=== PATIENT | female | born 1960 | race Caucasian/White ===

== ENCOUNTER 2017-06-07 11:37 | Emergency (ER) | payer BC ==
[~2017-06-07] VITALS: Ht 162.6 cm; Wt 47.6 kg
--- NOTE | ~2017-06-07 | EKG ---
[address] [address] ELECTROCARDIOGRAM REPORT Name: ZABRINA HITCHCOCK Room #: DEP [facility]#: [id number] Admission: 06/07/17 Attend Phys: Discharge: 06/07/17 Date of : 56 Report #: [id number] THIS REPORT FOR: //name// [facility] ED Test Date: 2017-06-07 Test Time: 12:03:39 Pat Name: ZABRINA HITCHCOCK Department: Room: Gender: F Hospital Admissions Officer: Sandra MORENO : 1960 Requested By: Darcy Harris Order Number: [id number] MD: Jan Nguyen Measurements Intervals [place] Rate: 90 P: 69 [place]: 130 QRS: 55 QRSD: 92 T: 51 QT: 306 QTc: 375 Interpretive Statements Sinus rhythm Compared to ECG 08/29/2010 15:15:10 Atrial abnormality no longer present Right-axis deviation no longer present Electronically Signed On 06-07-2017 17:29:33 [employer] PROSE WRITER by Jan Nguyen [email or web address] <ELECTRONICALLY SIGNED> By: Jan Nguyen MD 06/07/17 1729 1203 02 Jan Nguyen MD /ZION
[~2017-06-07 11:37] MED LIST: DESYREL100 MG PO; DIAZEPAM 2MG TAB2 MG PO; IBUPROFEN 200200 M1 PO; PRISTIQ50 MG PO
[2017-06-07] MEDS ORDERED: XANAX 0.5 MG0.5 MG PO (12:09)
[2017-06-07] MEDS ORDERED: CELEXA40 MG PO (12:09)
[2017-06-07] MEDS ORDERED: NORVASC5 MG PO (12:10)
[2017-06-07] MEDS ORDERED: PRINIVIL20 MG PO (12:10)
[2017-06-07 12:16] LABS: ABSOLUTE NEUTROPHILS 16.9 thou/uL (1.4-8.2); BASOPHILS 0.2 % (0.0-2.0); HEMATOCRIT 46.6 % (37.0-47.0); HEMOGLOBIN 15.8 gm/dL (12.0-15.0); MCH 30.8 pg (26.0-34.0); MCV 90.7 fL (80.0-100.0); MONOCYTES 1.9 % (1.0-8.0); PLATELET COUNT 234 thou/uL (150-400); POLYS 92.9 % (36.0-66.0); RBC 5.14 mil/uL (4.20-5.00); RDW 13.1 % (10.5-14.5); WBC 18.2 thou/uL (4.0-11.0)
[2017-06-07 12:31] LABS: CALCIUM 10.1 mg/dL (8.5-10.1); CREATININE 1.1 mg/dL (0.6-1.0); POTASSIUM 3.6 mmol/L (3.5-5.1)
== END 2017-06-07 15:13 | disposition home or self-care (01) ==
LOC: ER 11:37
PROVIDERS: Emergency Medicine
DX: J18.9 Pneumonia, unspecified organism (principal); J98.01 Acute bronchospasm; D72.829 Elevated white blood cell count, unspecified; F17.210 Nicotine dependence, cigarettes, uncomplicated; I10 Essential (primary) hypertension; F32.9 Major depressive disorder, single episode, unspecified; Z88.0 Allergy status to penicillin; Z90.710 Acquired absence of both cervix and uterus

== ENCOUNTER 2019-11-03 15:58 | Emergency (ER) | payer BC ==
[~2019-11-03] VITALS: Ht 162.6 cm; Wt 51.3 kg
[~2019-11-03 15:58] MED LIST changes: +CELEXA40 MG PO; +NORVASC5 MG PO; +PRINIVIL20 MG PO; +XANAX 0.5 MG0.5 MG PO
[2019-11-03] MEDS ORDERED: NORCO 5-325 TA1 EAC1 PO (17:17)
[2019-11-03 17:22] VITALS: BP 138/83
== END 2019-11-03 17:24 | disposition home or self-care (01) ==
LOC: ER 15:58
DX: S42.202A Unspecified fracture of upper end of left humerus, initial encounter for closed fracture (principal); I10 Essential (primary) hypertension; F17.210 Nicotine dependence, cigarettes, uncomplicated; Z79.899 Other long term (current) drug therapy; Z88.0 Allergy status to penicillin; W18.39XA Other fall on same level, initial encounter; Y93.89 Activity, other specified; Y92.89 Other specified places as the place of occurrence of the external cause; Y99.8 Other external cause status

== ENCOUNTER 2020-01-07 16:11 | Emergency (ER) | payer BC ==
[~2020-01-07] VITALS: Ht 162.6 cm; Wt 49.0 kg
--- NOTE | ~2020-01-07 | EKG ---
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
[~2020-01-07 16:11] MED LIST changes: +NORCO 5-325 TA1 EAC1 PO
[2020-01-07] MEDS ORDERED: LISINOPRIL40 MG PO (16:22)
[2020-01-07] MEDS ORDERED: TRAMADOL 50 MG50 MG PO ×3 (16:22→17:58)
[2020-01-07] MEDS ORDERED: DESYREL150 MG PO (16:22)
[2020-01-07 16:53] LABS: ABSOLUTE NEUTROPHILS 7.2 thou/uL (1.4-8.2); ANION GAP 11 mmol/L (7-16); BASOPHILS 0.9 % (0.0-2.0); BUN 17 mg/dL (7-18); CALCIUM 9.1 mg/dL (8.5-10.1); CHLORIDE 100 mmol/L (98-107); CO2 25 mmol/L (21-32); EOSINOPHILS 3.1 % (0.0-3.0); GLUCOSE 96 mg/dL (74-106); HEMATOCRIT 47.5 % (37.0-47.0); LYMPHOCYTES 22.2 % (24.0-44.0); MCH 31.8 pg (26.0-34.0); MCHC 33.6 g/dL (28.0-37.0); MCV 94.4 fL (80.0-100.0); MONOCYTES 4.2 % (1.0-8.0); PLATELET COUNT 305 thou/uL (150-400); POLYS 69.6 % (36.0-66.0); POTASSIUM 4.1 mmol/L (3.5-5.1); RBC 5.03 mil/uL (4.20-5.00); RDW 13.6 % (10.5-14.5); SODIUM 136 mmol/L (136-145); WBC 10.3 thou/uL (4.0-11.0)
[2020-01-07] MEDS ORDERED: ONDANSETRON ODT8 MG PO ×2 (16:57→17:58)
[2020-01-07] MEDS ORDERED: VENTOLIN HFA 1818 GM INH (16:57)
[2020-01-07] MEDS ORDERED: PREDNISONE 20 M20 MG PO ×2 (16:57→17:58)
[2020-01-07 17:04] LABS: ALBUMIN 3.9 g/dL (3.4-5.0); LIPASE 156 U/L (73-393); MAGNESIUM 1.9 mg/dL (1.8-2.4); SGOT 18 U/L (15-37); SGPT 22 U/L (30-65); TOTAL BILIRUBIN 0.6 mg/dL (0.2-1.0); TOTAL PROTEIN 7.3 g/dL (6.4-8.2); TROPONIN-I <0.06 ng/mL (<0.06)
[2020-01-07 17:11] LABS: APTT 23.8 Seconds (24.5-32.8); PROTIME 10.5 Seconds (9.3-11.4)
[2020-01-07 17:23] LABS: URINE BILIRUBIN NEGATIVE (Negative); URINE BLOOD NEGATIVE (Negative); URINE CLARITY CLEAR; URINE COLOR YELLOW; URINE GLUCOSE-RANDOM* NEGATIVE (Negative); URINE KETONES TRACE (Negative); URINE LEUKOCYTES-REFLEX NEGATIVE (Negative); URINE NITRITE-REFLEX NEGATIVE (Negative); URINE PROTEIN (DIPSTICK) NEGATIVE (Negative); URINE SPECIFIC GRAVITY 1.015 (1.005-1.035); URINE UROBILINOGEN 0.2 E.U./dl (0.2-1.0)
[2020-01-07 18:59] VITALS: BP 130/86
--- NOTE | 2020-01-10 08:05 | EKG ---
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
== END 2020-01-07 19:00 | disposition home or self-care (01) ==
LOC: ER 16:11
PROVIDERS: Emergency Medicine
DX: R11.2 Nausea with vomiting, unspecified (principal); Z20.828 Contact with and (suspected) exposure to other viral communicable diseases; R19.7 Diarrhea, unspecified; J98.01 Acute bronchospasm; R10.84 Generalized abdominal pain; I10 Essential (primary) hypertension; J44.9 Chronic obstructive pulmonary disease, unspecified; F17.210 Nicotine dependence, cigarettes, uncomplicated; Z88.0 Allergy status to penicillin; Z79.899 Other long term (current) drug therapy; Z90.710 Acquired absence of both cervix and uterus

== ENCOUNTER 2020-03-19 14:45 | Emergency (ER) | payer BC ==
[~2020-03-19] VITALS: Ht 162.6 cm; Wt 47.6 kg
[~2020-03-19 14:45] MED LIST changes: +DESYREL150 MG PO; +LISINOPRIL40 MG PO; +ONDANSETRON ODT8 MG PO; +PREDNISONE 20 M20 MG PO; +TRAMADOL 50 MG50 MG PO; +VENTOLIN HFA 1818 GM INH
[2020-03-19 15:19] LABS: ABSOLUTE NEUTROPHILS 11.3 thou/uL (1.4-8.2); BASOPHILS 0.4 % (0.0-2.0); HEMATOCRIT 50.6 % (37.0-47.0); HEMOGLOBIN 17.4 gm/dL (12.0-15.0); LYMPHOCYTES 7.4 % (24.0-44.0); MCH 31.9 pg (26.0-34.0); MCHC 34.4 g/dL (28.0-37.0); MCV 92.7 fL (80.0-100.0); MONOCYTES 2.8 % (1.0-8.0); PLATELET COUNT 346 thou/uL (150-400); POLYS 89.4 % (36.0-66.0); RBC 5.46 mil/uL (4.20-5.00); RDW 13.4 % (10.5-14.5); WBC 12.7 thou/uL (4.0-11.0)
[2020-03-19 15:31] LABS: ANION GAP 16 mmol/L (7-16); BUN 14 mg/dL (7-18); CALCIUM 9.5 mg/dL (8.5-10.1); CHLORIDE 95 mmol/L (98-107); CO2 22 mmol/L (21-32); CREATININE 0.8 mg/dL (0.6-1.0); GLUCOSE 114 mg/dL (74-106); POTASSIUM 3.5 mmol/L (3.5-5.1); SODIUM 133 mmol/L (136-145)
[2020-03-19 15:41] LABS: ALBUMIN 4.3 g/dL (3.4-5.0); DIRECT BILIRUBIN 0.2 mg/dL (<0.1-0.2); SGOT 22 U/L (15-37); SGPT 17 U/L (30-65); TOTAL BILIRUBIN 0.9 mg/dL (0.2-1.0); TOTAL PROTEIN 8.3 g/dL (6.4-8.2); TROPONIN-I <0.06 ng/mL (<0.06)
[2020-03-19 16:37] LABS: URINE BILIRUBIN NEGATIVE (Negative); URINE BLOOD TRACE (Negative); URINE CLARITY CLEAR; URINE COLOR YELLOW; URINE GLUCOSE-RANDOM* NEGATIVE (Negative); URINE KETONES 2+ (Negative); URINE LEUKOCYTES-REFLEX NEGATIVE (Negative); URINE NITRITE-REFLEX NEGATIVE (Negative); URINE PROTEIN (DIPSTICK) NEGATIVE (Negative); URINE UROBILINOGEN 0.2 E.U./dl (0.2-1.0)
[2020-03-19 19:11] VITALS: BP 174/98
[2020-03-19] MEDS ORDERED: PEPCID20 MG PO (19:16)
[2020-03-19] MEDS ORDERED: ZOFRAN ODT4 MG PO (19:16)
[2020-03-19] MEDS ORDERED: PHENERGAN 25 MG25 M1 PO (19:16)
--- NOTE | 2020-03-20 07:31 | EKG ---
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: HÉCTOR : 1960 Requested By: Ava Moore Order Number: [id number] MD: Sameer Johnson Measurements Intervals [place] Rate: 97 P: -86 [place]: 78 QRS: 59 QRSD: 90 T: 56 QT: 368 QTc: 468 Interpretive Statements Ectopic atrial rhythm Short [place] interval Compared to ECG 01/07/2020 16:29:31 Ectopic atrial rhythm now present Short [place] interval now present Sinus rhythm no longer present T-wave abnormality no longer present Electronically Signed On 03-20-2020 7:31:45 CDT by Sameer Johnson [email or web address] <ELECTRONICALLY SIGNED> By: Sameer Johnson MD, FACC 03/20/20 0731 1519 1519 Sameer Johnson MD, FACC /EPI
== END 2020-03-19 19:19 | disposition home or self-care (01) ==
LOC: ER 14:45
PROVIDERS: Emergency Medicine
DX: R11.2 Nausea with vomiting, unspecified (principal); R82.4 Acetonuria; R10.10 Upper abdominal pain, unspecified; I10 Essential (primary) hypertension; J44.9 Chronic obstructive pulmonary disease, unspecified; F17.210 Nicotine dependence, cigarettes, uncomplicated; Z90.49 Acquired absence of other specified parts of digestive tract; Z90.710 Acquired absence of both cervix and uterus; Z79.899 Other long term (current) drug therapy; Z88.0 Allergy status to penicillin